=== PATIENT | male | born 1995 | race Two or more races ===

== ENCOUNTER 2022-09-15 19:39 | Emergency (ER) | payer SELFPAY ==
[2022-09-15 19:51] VITALS: BP 124/80; PULSE 84; RESP 20; TEMP 97.5; BMI 50.3
[2022-09-15] MEDS ORDERED: SODIUM CHLORIDE 0.9% 500 ML INFUS.BAG IV ONE (21:25)
[2022-09-15] MEDS ORDERED: KETOROLAC TROMETHAMINE 30 MG/1 ML VIAL IVPUSH ONE (21:27)
[2022-09-15 21:48] LABS: EPI CELLS 8 /uL (0-25.1); HYALINE CASTS 1 /uL (0-3.1); PH,URINE 6.5 (5.0-8.0); URINE APPEARANCE CLOUDY; URINE BACTERIA 9 /uL (0-1359); URINE BILIRUBIN NEGATIVE (NEGATIVE); URINE COLOR YELLOW; URINE GLUCOSE (UA) NEGATIVE (NEGATIVE); URINE KETONE TRACE (NEGATIVE); URINE LEUK ESTERASE TRACE (NEGATIVE); URINE NITRITE NEGATIVE (NEGATIVE); URINE PROTEIN 1+ (NEGATIVE); URINE RBC 4914 /uL (0-23.9); URINE WBC 37 /uL (0-25.8)
[2022-09-15 22:19] LABS: HEMATOCRIT 49.2 % (35.4-49); HEMOGLOBIN 16.2 GM/dL (11.7-16.9); MCH 30.8 pg (25.7-33.7); MEAN CELL VOLUME 93.6 fl (80-96); MEAN PLT VOLUME 10.7 fl (7.5-11.1); PLATELET COUNT 201 10^3/uL (134-434); RBC 5.25 M/mm3 (4.00-5.60); RDW 11.9 % (11.9-15.9); WHITE BLOOD COUNT 12.8 K/mm3 (4.0-10.0)
[2022-09-15 22:31] LABS: CALCIUM 9.8 mg/dL (8.5-10.1)
[2022-09-15 22:32] LABS: ALBUMIN 4.4 g/dl (3.4-5.0)
[2022-09-15 22:36] LABS: BILIRUBIN,TOTAL 0.6 mg/dL (0.2-1); TOT PROT 7.7 g/dl (6.4-8.2)
[2022-09-15 23:41] LABS: ANISOCYTOSIS 0; MACROCYTOSIS 0
== END 2022-09-15 23:08 | disposition home or self-care (01) ==
LOC: JER 19:39
PROC: 3E0333Z Introduction of Anti-inflammatory into Peripheral Vein, Percutaneous Approach (ICD-10-PCS; principal; 2022-09-15)
DX: N23 Unspecified renal colic (principal)
CPT/HCPCS: 36415; 76870-TC; 80053; 81003; 85025; 87086; 87491; 87591; 99284-25